=== PATIENT | male | born 1990 | race Caucasian/White ===

== ENCOUNTER 2022-12-16 14:30 | Emergency (ER) | payer MEDICAID, OTHER ==
[~2022-12-16] VITALS: Ht 175.3 cm; Wt 67.2 kg
[2022-12-16] MEDS ORDERED: TETANUS-DIPTH-ACEL PERTUSSIS 0.5ML SYR Tdap IM ONE (15:30)
[2022-12-16] MEDS ORDERED: cefTRIAXone SOD 1,000 MG VL IM ONE (15:30)
[2022-12-16 15:33] VITALS: BP 137/96
[2022-12-16] MEDS ORDERED: NAPR500T31 PO (16:41)
[2022-12-16] MEDS ORDERED: AMOX500T86 PO (16:41)
== END 2022-12-16 16:50 | disposition home or self-care (01) ==
LOC: ER 14:30
DX: S61.531A Puncture wound without foreign body of right wrist, initial encounter (principal); S61.551A Open bite of right wrist, initial encounter; L08.9 Local infection of the skin and subcutaneous tissue, unspecified; F17.210 Nicotine dependence, cigarettes, uncomplicated; Z79.2 Long term (current) use of antibiotics; Z79.899 Other long term (current) drug therapy; W55.01XA Bitten by cat, initial encounter; Y93.89 Activity, other specified; Y92.89 Other specified places as the place of occurrence of the external cause; Y99.8 Other external cause status
CPT/HCPCS: 90471; 90715; 96372; 99284; J0696